=== PATIENT | male | born 1960 | race Two or more races ===

== ENCOUNTER 2021-09-13 08:24 | Emergency (ER) | payer OTHER, SELFPAY ==
--- NOTE | ~2021-09-13 | XR_ITS ---
EXAMINATION: XR KNEE, RIGHT 2 views CLINICAL INFORMATION: Fall with right knee pain COMPARISON: None TECHNIQUE: Two views of the right knee. FINDINGS: No bony fracture or dislocation observed. There is no evidence for osteochondral lesion or erosion. A suprapatellar effusion is observed. Small spurring or ossicle just above the superior patella. XR/XR knee RT 2V IMPRESSION: No definite evidence for acute bony fracture. Suprapatellar effusion.
[2021-09-13 08:56] VITALS: BP 134/84; PULSE 82; RESP 18; TEMP 36.3; O2SAT 99; BMI 26.6
--- NOTE | 2021-09-13 08:57 | ED.GENADULT ---
HPI - General Adult General Chief complaint: Extremity Injury, Lower Stated complaint: Fall at work/ R leg inj Time Seen by Provider: 09/13/21 08:57 Source: patient Mode of arrival: ambulatory Limitations: no limitations History of Present Illness HPI narrative: Patient is a a 61 year old male presenting to the emergency department today with right knee pain. Patient states that he slid down a ladder, causing his right knee to buckle inward. Patient denies hitting his head with the incident. Patient denies any loss of consciousness. Patient denies any dizziness, lightheadedness, abdominal pain, nausea, vomiting, fever, chills, blurry vision, double vision, loss of vision, chest pain, difficulty breathing, shortness of breath, back pain, night sweats, pain with urination, increased urinary frequency, increased urinary urgency, blood in his urine or stool, syncope or a near syncopal episode, bowel incontinence, bladder incontinence, bowel retention, bladder retention, or any other complaints at this time. Onset (ago): minute(s) Location: right and lower extremity Radiation: non-radiation Severity: mild Severity scale (1-10): 3 Quality: dull Pain Consistency: constant Relieving factors: none Exacerbating factors: none Associated symptoms: denies other symptoms Treatments prior to arrival: none Related Data Previous Rx's Medication Instructions Recorded cyclobenzaprine 10 mg tablet 10 mg PO TID PRN right knee pain 7 09/13/21 days #21 tabs Allergies Allergy/AdvReac Type Severity Reaction Status Date / Time No Known Allergies Allergy Verified 09/13/21 08:55 Review of Systems Constitutional: Constitutional: Reports no additional constitutional complaints, Denies chills, Denies fever(s) and Denies night sweats Eyes: Eyes: Reports no additional eye complaints, Denies blurry vision, Denies change in vision, Denies diplopia, Denies eye discharge, Denies loss of vision and Denies eye pain ENT: Denies dizziness Cardiovascular: Cardiovascular: Reports no additional cardiovascular complaints, Denies chest pain, Denies lightheadedness, Denies Loss of Consciousness and Denies dyspnea Respiratory: Respiratory: Reports no additional respiratory complaints and Denies dyspnea Gastrointestinal: Gastrointestinal: Reports no additional gastrointestinal complaints, Denies abdominal pain, Denies melena, Denies hematochezia, Denies change in bowel habits and Denies change in stool character Genitourinary: Genitourinary: Reports no additional male genitourinary complaints, Denies hematuria, Denies oliguria, Denies difficulty urinating, Denies dysuria, Denies urinary frequency, Denies urinary hesitancy, Denies urinary incontinence and Denies urinary urgency Musculoskeletal: Musculoskeletal: Reports no additional musculoskeletal complaints, Denies numbness and Denies tingling Comments: right knee pain Neurologic: Denies dizziness, Denies loss of vision, Denies numbness and Denies tingling Psychiatric: Psychiatric: Reports no additional psychiatric complaints Endocrine: Endocrine: Reports no additional endocrine complaints Hematologic/Lymphatic: Hematologic/Lymphatic: Reports no additional hematologic/lymphatic complaints Allergic/Immunologic: Allergic/Immunologic: Reports no additional allergic/immunologic complaints [facility] Past Medical History Attestation statement: The following information was validated with the patient. Source: old records reviewed Social History Social History Advance Directives: No Advance Directives Information Provided: No Physical Exam ED Vital Signs: Vital Signs - 24 hr 09/13/21 08:56 Temperature 97.4 F Pulse Rate 82 Respiratory Rate 18 Blood Pressure 134/84 Pulse Oximetry 99 Oxygen Delivery Method Room Air BMI result Body Mass Index 26.6 Const General: cooperative, no acute distress, alert and awake Nutritional Appearance: well nourished Orientation/consciousness: patient oriented x3 Limitations: no limitations HENMT Head: Yes normal to inspection and Yes atraumatic Ears: hearing grossly normal bilaterally and external ears normal General nose exam: Normal external nose present, no nasal discharge noted and no epistaxis Face and sinus: Yes normal facial exam, No abrasion and No laceration Mouth: Normal oral and palatal mucosa present, no drooling and no muffled voice Eyes General: appearance normal, both eyes and all related structures Periorbital: periorbital findings normal Eyelids: Yes eyelids normal Conjunctivae: conjunctivae normal Pupils: Equal, round and reactive pupils present EOM: EOMs intact bilaterally Neck Neck: Yes normal visual inspection, Yes full ROM and Yes no lymphadenopathy Chest Chest palpation & inspection: normal inspection of the chest Resp Effort & Inspection: normal respiratory effort and able to speak in complete sentences Auscultation: clear to auscultation bilaterally Cardio Rate: regular rate Rhythm: regular rhythm GI Inspection: Yes normal to inspection Neuro General: patient oriented x3 and moves all extremities Cranial nerves: Yes Equal, round and reactive pupils present Cognition (Neuro): normal cognition Motor exam (neuro): 5/5 motor strength present throughout Sensory Exam: Normal double simultaneous stimulation for sensation Coordination: [id number] test normal Extrem Other: pain along the medial aspect of the right knee with valgus palpation General: Yes normal to inspection, Yes full ROM and Yes capillary refill normal Psych Appearance: grossly normal Mental Status: mental status grossly normal Affect: normal affect Attitude: cooperative Thought process: Normal thought process present Thought content: Normal thought content present Insight: Good insight present (Psych) Procedures Orthopedic Splinting/Casting Injury #1: Side: right Lower Extremity Injury Location: knee Lower Extremity Immobilizer: knee immobilizer Other Orthopedic Equipment: crutches Medical Decision Making MDM Narrative Medical decision making narrative: Patient is a 61 year old male presenting to the emergency department today with right knee pain. Patient's physical exam showed medial right knee pain with valgus force but was otherwise unremarkable. Patient's right knee x-ray showed no acute process. I explained my physical exam findings as well as all test results to the patient. I answered all questions asked by the patient. Patient received IM Toradol and PO Flexeril which he stated helped his pain significantly. Patient's right knee was placed in an immobilizer and the patient was given crutches with crutch training. Patient's PMS was in tact prior to and after immobilizer placement. I stressed the importance of the patient taking [his/her/their] medication as prescribed. I stressed the importance of the patient following up with his primary care provider and an orthopedic provider. I stressed the importance of the patient returning to the emergency department immediately if his symptoms were to worsen or if he were to develop any dizziness, shortness of breath, difficulty breathing, chest pain, blurry vision, loss of vision, nausea, vomiting, abdominal pain, fever, chills, back pain, or any other complaints. Patient verbalized agreement and understanding with this treatment plan and discharge. Differential Diagnosis Differential Diagnosis: Right knee pain, medial collateral ligament injury Medical Records Medical records reviewed: Yes I reviewed the patient's medical records. Imaging Data Right knee x-ray: Attestation: I personally reviewed and interpreted this imaging study as follows: My impression: No acute process. Radiologist's impression: EXAMINATION: XR KNEE, RIGHT 2 views CLINICAL INFORMATION: Fall with right knee pain? COMPARISON: None? TECHNIQUE: Two views of the right knee. FINDINGS: No bony fracture or dislocation observed. There is no evidence for osteochondral lesion or erosion. A suprapatellar effusion is observed. Small spurring or ossicle just above the superior patella.? XR/XR knee RT 2V IMPRESSION: No definite evidence for acute bony fracture. ? Suprapatellar effusion. Dictated By: Tee Chavarria Signed By: Electronically signed by Halley 09/13/21 1026 Discharge Plan Discharge Clinical Impression: Medial collateral ligament sprain of knee Patient Disposition: Home, Self-Care Instructions: Knee Sprain (ED), Crutch Instructions (ED) Additional Instructions: Follow up with your primary care provider and an orthopedic provider. Return to the emergency department immediately if your symptoms worsen or if you develop any dizziness, shortness of breath, difficulty breathing, chest pain, blurry vision, loss of vision, nausea, vomiting, abdominal pain, fever, chills, back pain, or any other complaints. Prescriptions: New cyclobenzaprine 10 mg tablet 10 mg PO TID PRN (Reason: right knee pain) 7 Days Qty: 21 0RF Ref[place]: [facility] [place] [facility] [place]] (Call to establish and follow up with a primary care provider. If you already have one, please follow up with them. ) [facility] [place] [facility] [facility] [Provider Group] (Call to establish and follow up with a primary care provider. If you already have one, please follow up with them. ) [facility] [place] [facility] [Provider Group] (Call to establish and follow up with a primary care provider. If you already have one, please follow up with them. ) [facility] [place] [facility] [Provider Group] (Call to establish and follow up with an orthopedic provider. ) Stand Alone Forms: Work/School Release Interventions: ED Discharge Assessment Last Done: 09/13/21 10:00 Discharge Date/Time: 09/13/21 10:00 Print Language: Ukrainian
[2021-09-13] MEDS: Cyclobenzaprine HCl 10 MG TABLET PO (09:14)
[2021-09-13] MEDS: Ketorolac Tromethamine 30 MG/ML VIAL IM (09:15)
== END 2021-09-13 10:00 | disposition home or self-care (01) ==
PROVIDERS: Emergency Provider Emergency Medicine
DX: S83.401A Sprain of unspecified collateral ligament of right knee, initial encounter (principal); W11.XXXA Fall on and from ladder, initial encounter; Y93.H3 Activity, building and construction; Y92.214 College as the place of occurrence of the external cause; Y99.0 Civilian activity done for income or pay
CPT/HCPCS: 73560; 96372; 99283; 99284; J1885

== ENCOUNTER 2021-10-05 06:06 | Outpatient (REF) | payer OTHER, SELFPAY ==
--- NOTE | ~2021-10-05 | XR_ITS ---
EXAMINATION: XR KNEE CLINICAL INFORMATION: Right knee pain COMPARISON: Previous x-ray August 2021 TECHNIQUE: AP bilateral standing view of the knees and lateral sunrise view of the right knee was obtained. FINDINGS: Right: Bone alignment is normal. No acute fracture or dislocation is seen. There is orthopedic hardware seen in the distal femoral shaft. The joint spaces are normal. There is a small joint effusion. This is decreased from August 2021 exam. There is mild soft tissue arterial calcification. Standing AP view of left knee is unremarkable. XR/XR knee standing BI IMPRESSION: Right knee: Orthopedic hardware in the right femoral shaft. Interval decrease in right knee joint effusion from August 2021
--- NOTE | ~2021-10-05 | XR_ITS ---
EXAMINATION: XR KNEE CLINICAL INFORMATION: Right knee pain COMPARISON: Previous x-ray August 2021 TECHNIQUE: AP bilateral standing view of the knees and lateral sunrise view of the right knee was obtained. FINDINGS: Right: Bone alignment is normal. No acute fracture or dislocation is seen. There is orthopedic hardware seen in the distal femoral shaft. The joint spaces are normal. There is a small joint effusion. This is decreased from August 2021 exam. There is mild soft tissue arterial calcification. Standing AP view of left knee is unremarkable. XR/XR knee RT 1V IMPRESSION: Right knee: Orthopedic hardware in the right femoral shaft. Interval decrease in right knee joint effusion from August 2021
== END 2021-10-05 06:07 | disposition home or self-care (01) ==
LOC: HO.HOSX 06:06
PROVIDERS: Visit Provider Physician Assistant
DX: S80.01XA Contusion of right knee, initial encounter (principal)
CPT/HCPCS: 73560; 73565; 99202